=== PATIENT | male | born 1985 | race Hispanic/Latino ===

== ENCOUNTER 2024-04-29 19:33 | Emergency (ER) | payer OTHER, SELFPAY ==
[2024-04-29] VITALS (8 sets, daily range): BP systolic 117–145; BP diastolic 65–85; PULSE 65–82; RESP 16–22; TEMP 36.4–36.6; O2SAT 96–98; BMI 32.5
--- NOTE | 2024-04-29 20:00 | ED.ABDPAIN ---
HPI - Abdominal Pain General Chief Complaint: Abdominal Pain Stated Complaint: abd pain, blood in stool, nausea Time Seen by Provider: 04/29/24 19:59 Source: patient Mode of arrival: Ambulatory Limitations: no limitations History of Present Illness HPI narrative: 38-year-old male with complaint of several months of abdominal pain and cramping, intermittent bright red blood in his stool. Patient has a occasionally had some nausea vomiting. He states has had fevers in the past but not recently. Today he had normal bowel movement and had bright red blood when he wiped. Patient states he has had blood with hard stools as well as regular stools. He has had diarrhea in the past when he was in [place] but has not recently. States it has been going on for several months. Patient states no lightheadedness or passing out. He is not on any prescription medications. He has had prior eye surgeries when he was much younger. Never had a prior colonoscopy. No tobacco, no regular alcohol, no recreational drugs. Patient travels for work he sometimes spent several months in the [facility], sometimes in the [facility] sometimes in [place]. Patient states most of his family history is from step parents, his biological mom when he was 2 months old and knows that his father had hypertension and diabetes but he is unsure of any autoimmune diseases or Crohn's or ulcerative colitis. Related Data Home Medications Medication Instructions Recorded Confirmed No Known Home Medications 04/29/24 04/29/24 Allergies Allergy/AdvReac Type Severity Reaction Status Date / Time No Known Drug Allergies Allergy Verified 04/29/24 19:42 Review of Systems Review of Systems ROS Unobtainable: All systems reviewed & are unremarkable except as noted in HPI and below Patient History Social History Smoking Status: Never smoker Smoking Status: Never smoker Substance Use Type: does not use Exam Narrative Exam Narrative: GENERAL: Alert and oriented x three, male in mild distress. HEENT: Head normocephalic, atraumatic, EOMI, pupils reactive, face symmetric, moist mucous membranes NECK: Supple, full range of motion CARDIOVASCULAR: Regular rate and rhythm without murmurs, rubs or gallops. RESPIRATORY: Breath sounds equal bilaterally, no wheezes rales or rhonchi. ABDOMEN: Soft, nontender. Normoactive bowel sounds all 4 quadrants. No guarding or rebound, rigidity, no mass : No CVA tenderness EXTREMITIES: Normal range of motion, no clubbing or edema. Neurovascularly intact NEUROLOGICAL: Cranial nerves II through XII grossly intact. Moving all extremities SKIN: Warm, dry, no petechiae, no rashes or lesions. Initial Vital Signs Initial Vital Signs: Vital Signs Temperature 97.5 F L 04/29/24 19:43 Pulse Rate 80 04/29/24 19:43 Respiratory Rate 16 04/29/24 19:43 Blood Pressure 145/84 H 04/29/24 19:43 Pulse Oximetry 96 04/29/24 19:43 Oxygen Delivery Method Room Air 04/29/24 19:43 Course Orders Ordered: ED Orders 04/29/24 20:06 CBC Auto Diff [Complete Blood Count AUTO DIFF] Stat CMP [Comprehensive Metabolic Panel] Stat Lipase Stat 04/29/24 20:16 CT abdomen pelvis w con Stat Vital Signs Vital signs: Vital Signs - 8 hr 04/29/24 19:43 04/29/24 19:51 04/29/24 20:00 Temperature 97.5 F L Pulse Rate 80 79 82 Respiratory Rate 16 19 Blood Pressure 145/84 H Pulse Oximetry 96 97 97 Oxygen Delivery Method Room Air 04/29/24 20:00 04/29/24 20:42 04/29/24 20:43 Temperature Pulse Rate 75 73 Respiratory Rate 22 19 Blood Pressure 122/85 Pulse Oximetry 97 98 Oxygen Delivery Method 04/29/24 20:43 04/29/24 21:00 04/29/24 21:00 Temperature Pulse Rate 74 Respiratory Rate 18 Blood Pressure 118/65 124/82 Pulse Oximetry 97 Oxygen Delivery Method MDM - Abdominal Pain Lab Data 04/29/24 20:06 04/29/24 20:06 Labs: Lab Results 04/29/24 Range/Units 20:06 WBC 10.1 (4.5-11.0) X10^3/uL RBC 5.18 (4.5-5.9) X10^6/uL Hgb 15.2 (13.5-17.5) g/dL Hct 43.9 (41-53) % MCV 84.7 (80-100) fL MCH 29.4 (26-34) PG MCHC 34.7 (30-36) % RDW 12.8 (11.6-14.8) % Plt Count 284 (150-400) X10^3/uL Neut % (Auto) 47.7 L (50-75) % Lymph % (Auto) 43.3 H (25-40) % [place] % (Auto) 5.9 (3-14) % Eos % (Auto) 2.6 (2-4) % Baso % (Auto) 0.5 (0-2) % Neut # (Auto) 4800 (4061-1152) /uL Lymph # (Auto) 4400 (3335-3557) /uL [place] # (Auto) 600 (0-900) /uL Eos # (Auto) 300 (0-450) /uL Baso # (Auto) 0 (0-100) /uL Sodium 137 (137-145) mmol/L Potassium 3.7 (3.4-5.1) mmol/L Chloride 105 (98-107) mmol/L Carbon Dioxide 21 L (22-32) mmol/L BUN 16 (9-20) mg/dL Creatinine 0.80 (0.66-1.25) mg/dL Estimated GFR > 60 (>60) mL/min BUN/Creatinine Ratio 20.0 (6-22) Glucose 141 H (70-100) mg/dL Calcium 9.7 (8.4-10.2) mg/dL Total Bilirubin 0.5 (0.2-1.3) mg/dL AST 37 (17-59) IU/L ALT 56 H (<50) IU/L Alkaline Phosphatase 74 (38-126) U/L Total Protein 7.6 (6.3-8.2) g/dL Albumin 4.6 (3.5-5.0) g/dL Globulin 3.0 (1.7-4.1) g/dL Albumin/Globulin Ratio 1.5 (1.0-2.8) Lipase 56 (23-300) U/L Point of care testing: Urine Dip Bedside Urine Glucose Negative Bedside Urine Bilirubin - Negative Bedside Urine Ketone - Negative Urine Specific [place] 1.015 Bedside Urine Occult Blood +/- Bedside Urine pH 5.5 Bedside Urine Protein - Negative Bedside Urine Urobilinogen - Negative Bedside Urine Nitrite - Negative Bedside Urine Leukocytes - Negative Esterase MDM Narrative Medical decision making narrative: 38-year-old male with several months of abdominal cramping occasional nausea and vomiting, bright red blood in stools with sometimes hard constipated stools but also with soft stools. Has had some travel outside the country to [place] and did have some fevers at that time and some diarrhea which all resolved. He has not had any persistent deep 5 fevers, no persistent diarrhea. My suspicion for traveler's diarrhea or similar as much lower discussed with patient might have some colitis with his longstanding history. Labs white count of 10 hemoglobin of 15 platelets of 284 predominance of lymphocytes. Electrolytes are normal except for CO2 of 21 BUN 16 creatinine 0.8 glucose of 141 ALT is 56 AST is normal bilirubin is 0.[address] abdomen pelvis shows no acute findings hepatic steatosis. Patient is hemodynamically stable has had symptoms on and off for some time felt appropriate for discharge. Discussed with patient would recommend follow up for colonoscopy. Patient has follow up on Saturday with his primary care. Discharge Plan Departure Patient Disposition: Home Clinical Impression: Bright red rectal bleeding Instructions: DI for Rectal Bleeding Activity Restrictions/Additional Instructions: Please follow up rechecked, I would recommend follow up for colonoscopy to evaluate for causes of your rectal bleeding can sometimes be from hemorrhoids but if you are having abdominal cramping there are some other possibilities. Contacts included below for follow-up. This can be done with either General surgery or Gastroenterology.. Please return for rapidly worsening bleeding, lightheadedness or passing out, new abdominal back or flank pain, increasing large amounts of bleeding or large clots, persistent vomiting or other new or concerning changes. Prescriptions: No Action No Known Home Medications Referrals: Skip Coker MD [Physician] - Stand Alone Forms: Patient Portal/API
--- NOTE | 2024-04-29 20:16 | DI.CT.S_ITS ---
PROCEDURE: CT ABDOMEN PELVIS W CON INDICATIONS: abd cramping, rectal bleeding several months, normal bm TECHNIQUE: After the administration of intravenous contrast, axial sections acquired from the lung bases to the pubic symphysis. Coronal and sagittal reformats were performed. For radiation dose reduction, the following was used: automated exposure control, adjustment of mA and/or kV according to patient size. COMPARISON: None. FINDINGS: Image quality: Diagnostic. Lower Chest: No significant findings. ABDOMEN: Liver: No solid mass. Hepatic steatosis. Gallbladder: No radiopaque gallstones or wall thickening. Biliary ducts: No biliary dilation. Pancreas: No ductal dilation. Spleen: Size is within normal limits. Adrenal Glands: No adrenal nodules. Kidneys and Ureters: No hydronephrosis. No solid mass. No complex renal cystic lesion which requires follow up. Stomach and Bowel: Normal colonic caliber, without significant wall thickening. Normal appendix. Peritoneum: No abnormal intraperitoneal fluid. No free air. Ventral Wall: No significant ventral hernia. Abdominal Nodes: No retroperitoneal or mesenteric adenopathy by size criteria. Vessels: Aorta and inferior vena cava are normal in size. PELVIS: Pelvic Organs: Unremarkable. Bladder: No bladder wall thickening, accounting for underdistention. Pelvic Nodes: No enlarged lymph nodes. Miscellaneous: No inguinal hernias are seen. Bones: No aggressive osseous abnormality. IMPRESSION: 1. No acute findings within the abdomen or pelvis to explain patient's symptoms. 2. Hepatic steatosis. Dictated by: Prashant Kelley M.D. on 04/29/2024 at 20:58 Approved by: Prashant Kelley M.D. on 04/29/2024 at 21:01
[2024-04-29 20:23] LABS: Add Manual Diff / Slide Review NO; Basophils Absolute Auto 0 /uL (0-100); Basophils Percent Auto 0.5 % (0-2); Eosinophils Absolute Auto 300 /uL (0-450); Eosinophils Percent Auto 2.6 % (2-4); Hematocrit 43.9 % (41-53); Hemoglobin 15.2 g/dL (13.5-17.5); Lymphocytes Absolute Auto 4400 /uL (1100-4500); Lymphocytes Percent Auto 43.3 % (25-40); Mean Corpuscular HGB Conc 34.7 % (30-36); Mean Corpuscular Hemoglobin 29.4 PG (26-34); Mean Corpuscular Volume 84.7 fL (80-100); Monocytes Absolute Auto 600 /uL (0-900); Monocytes Percent Auto 5.9 % (3-14); Neutrophils Absolute Auto 4800 /uL (1500-7000); Neutrophils Percent Auto 47.7 % (50-75); Platelet Count 284 X10^3/uL (150-400); Red Blood Cell Count 5.18 X10^6/uL (4.5-5.9); Red Cell Distribution Width 12.8 % (11.6-14.8); White Blood Cell Count 10.1 X10^3/uL (4.5-11.0)
[2024-04-29 20:27] LABS: Alanine Aminotransferase 56 IU/L (<50); Albumin 4.6 g/dL (3.5-5.0); Albumin Globulin Ratio 1.5 (1.0-2.8); Alkaline Phosphatase 74 U/L (38-126); Aspartate Aminotransferase 37 IU/L (17-59); Bilirubin Total 0.5 mg/dL (0.2-1.3); Blood Urea Nitrogen 16 mg/dL (9-20); Calcium 9.7 mg/dL (8.4-10.2); Carbon Dioxide 21 mmol/L (22-32); Chloride 105 mmol/L (98-107); Estimated Glomerular Filt Rate > 60 mL/min (>60); Glucose 141 mg/dL (70-100); HEMOLYSIS 38 (0-50); Lipase 56 U/L (23-300); Potassium 3.7 mmol/L (3.4-5.1); Sodium 137 mmol/L (137-145); Total Protein 7.6 g/dL (6.3-8.2)
== END 2024-04-29 21:46 | disposition home or self-care (01) ==
PROVIDERS: Emergency Provider Emergency Medicine
DX: K62.5 Hemorrhage of anus and rectum (principal); R11.2 Nausea with vomiting, unspecified; R10.9 Unspecified abdominal pain
CPT/HCPCS: 36415; 74177; 80053; 81003; 83690; 85025; 99283; 99284; Q9967